=== PATIENT | male | born 1985 | race Two or more races ===

== ENCOUNTER 2020-12-05 21:41 | Emergency (ER) | payer OTHER ==
[~2020-12-05] VITALS: Ht 172.7 cm; Wt 63.5 kg
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
[2020-12-05 21:56] VITALS: BP 132/77
[2020-12-05] MEDS ORDERED: IBUPROFEN 600 MG TABLET PO ONE (22:00)
[2020-12-05] MEDS ORDERED: IBUPROFEN 600 MG TABLET ONE (22:00)
--- NOTE | 2020-12-05 22:28 | NUR ---
Patient discharged to home in stable condition. Written and verbal after care instructions given. Patient verbalizes understanding of instruction.
== END 2020-12-05 22:29 | disposition home or self-care (01) ==
LOC: ER 21:43
DX: S80.01XA Contusion of right knee, initial encounter (principal); S00.83XA Contusion of other part of head, initial encounter; S20.312A Abrasion of left front wall of thorax, initial encounter; V49.49XA Driver injured in collision with other motor vehicles in traffic accident, initial encounter; Y93.89 Activity, other specified; Y92.488 Other paved roadways as the place of occurrence of the external cause; Y99.8 Other external cause status